=== PATIENT | female | born 1975 | race Caucasian/White ===

== ENCOUNTER 2017-11-07 12:40 | Emergency (ER) | payer OTHER ==
[2017-11-07 13:02] VITALS: RESP 18
[2017-11-07 13:22] VITALS: BMI 23.2
[2017-11-07 13:39] VITALS: O2SAT 98
[2017-11-07] MEDS ORDERED: Sodium Chloride 0.9% 1,000 ML IV ONE (14:16)
[2017-11-07] MEDS ORDERED: Sodium Chloride 0.9% 1,000 ML ONE (14:23)
--- NOTE | 2017-11-07 14:30 | C.PDOC ---
History Of Present Illness 42 year old female presents to the ED complaining of 2 days of fever associated with cough and bodyaches. Saw PMD 2 days ago and was instructed to take ibuprofen as needed. Tmax was 102.1 at home this morning. Patient also complaining of menstrual cramps and 10/10 pelvic pain, which is constant and pounding in nature. Reports nausea but no vomiting. States she began feeling dizzy and weak when she arrived to the ED. PMD: Abalolly Juan Time Seen by Provider: 11/07/17 14:01 Chief Complaint (Nursing): Chest Pain History Per: Patient History/Exam Limitations: no limitations Onset/Duration Of Symptoms: Days (x2) Current Symptoms Are (Timing): Still Present Past Medical History Reviewed: Historical Data, Nursing Documentation, Vital Signs Vital Signs: Last Vital Signs Temp 98.4 F 11/07/17 13:37 Pulse 75 11/07/17 13:37 Resp 18 11/07/17 13:37 BP 92/64 L 11/07/17 13:37 Pulse Ox 98 11/07/17 14:42 - Medical History PMH: No Chronic Diseases Surgical History: Family History: States: No Known Family Hx - Social History Hx Tobacco Use: No Hx Alcohol Use: No Hx Substance Use: No - Immunization History Hx Tetanus Toxoid Vaccination: No Hx Influenza Vaccination: No Hx Pneumococcal Vaccination: No Review Of Systems Except As Marked, All Systems Reviewed And Found Negative. Constitutional: Positive for: Fever, Weakness (generalized), Other (Body aches) Cardiovascular: Positive for: Chest Pain Respiratory: Positive for: Cough. Negative for: Shortness of Breath Gastrointestinal: Positive for: Nausea, Abdominal Pain (cramping, pelvic pain). Negative for: Vomiting, Diarrhea Physical Exam - Physical Exam Appears: Non-toxic, In Acute Distress (mild painful distress), Other (Ill- appearing) Skin: Normal Color, Warm, Dry Head: Atraumatic, Normacephalic Eye(s): bilateral: Normal Inspection, PERRL, EOMI Nose: Normal Oral Mucosa: Moist Neck: Normal ROM, Supple Chest: Symmetrical, No Tenderness Cardiovascular: Rhythm Regular, No Murmur Respiratory: Normal Breath Sounds, No Accessory Muscle Use, No Rhonchi, No Wheezing Gastrointestinal/Abdominal: Normal Exam, Soft, No Tenderness, No Guarding, No Rebound Extremity: Bilateral: Atraumatic, Normal Color And Temperature, Normal ROM Neurological/Psych: Oriented x3, Normal Speech ED Course And Treatment O2 Sat by Pulse Oximetry: 98 (RA) Pulse Ox Interpretation: Normal Medical Decision Making Medical Decision Making: Clinical Impression: Flu-like illness Time: 14:15 Plan: * EKG * Motrin 600 mg PO * Tylenol 975 mg PO * Tamiflu 75 mg PO * IV fluids * Reevaluation Disposition Counseled Patient/Family Regarding: Diagnosis, Need For Followup, Rx Given - Disposition Disposition: HOME/ ROUTINE Disposition Time: 15:34 Condition: STABLE Additional Instructions: Take medication as indicated. Follow up with your doctor. Prescriptions: Ibuprofen [Motrin] 600 mg PO TID #15 tab Oseltamivir [Tamiflu] 1 cap PO BID #10 cap Instructions: Flu, Adult (DC) Forms: [facility] (Frisian), General Discharge Instructions - POA Present On Arrival: None - Clinical Impression Clinical Impression: Influenza, Menstrual cramps - Scribe Statement The provider has reviewed the documentation as recorded by the Austyn Hicks Provider Attestation: All medical record entries made by the Austyn were at my direction and personally dictated by me. I have reviewed the chart and agree that the record accurately reflects my personal performance of the history, physical exam, medical decision making, and the department course for this patient. I have also personally directed, reviewed, and agree with the discharge instructions and disposition.
[2017-11-07 16:31] VITALS: BP 100/60; PULSE 72; TEMP 98
--- NOTE | 2017-11-08 18:56 | CARD ---
APPROVED REPORT EKG Measurement Heart [id number] <Conclusion> Normal sinus rhythm Possible Left atrial enlargement Nonspecific ST abnormality Abnormal ECG
== END 2017-11-07 16:31 | disposition home or self-care (01) ==
LOC: C.ER 12:40
DX: J11.1 Influenza due to unidentified influenza virus with other respiratory manifestations (principal); N94.6 Dysmenorrhea, unspecified
CPT/HCPCS: 93005; 96360; 99285; J7040